=== PATIENT | female | born 1950 | race Caucasian/White ===

== ENCOUNTER → 2016-12-06 | Outpatient (CLI) | payer MEDICARE ==
[~2016-12-06] MED LIST: AMLO5TAB4 PO; BUSP15TA PO; CARV6.25 PO; DILT120C71 PO; DULO30CA2 PO; GABA-585 PO; GADOBUTROL 7.5 MMOL/7.5 ML VIAL IV ONE; IRBE300T PO; META800T PO; MOME13HF IH; MONT10TA9 PO; RIVA20TA2 PO; TRAM50TA PO; VALS320T2 PO
--- NOTE | 2016-12-06 15:53 | KCIC ---
PROCEDURE Screening 3Dmammogram. HISTORY Screening study. COMPARISON Comparison is made with the prior dated 2012 through 2016 FINDINGS 3D tomographic mammography images were obtained in the CC and MLO projections and reviewed on a [employer] workstation. Heterogeneous dense breast parenchyma is seen bilaterally. No asymmetric breast masses or spiculated lesions or clustering of microcalcification are seen to indicate malignancy radiographically. IMPRESSION There are no radiographic indicators for malignancy.Recommend routine screening mammography in one year. BI-RADS CATEGORY 1: Negative mammogram The patient will be entered into the reminder system with a target date of December 07, 2017. This study was interpreted with the benefit of Computerized Aided Detection (CAD). Mammography is not 100% sensitive in detecting breast cancer. Therefore, a self breast exam and a clinical breast exam are very important. A negative mammogram does not negate a clinically suspicious finding and should not result in a delay in biopsying a clinically suspicious abnormality. Based on current legislation, we are required to report to you the density of your breast tissue. Although breast density does not affect your risk for developing breast cancer, denser breast tissue may decrease the ability to detect breast cancer on a standard mammogram. Therefore, patients with denser breast tissue may benefit from a 3D screening mammogram. Categories are as follows: Category A - breast tissue is replaced with fatty tissue and not dense; Category B - scattered fibroglandular breast tissue that is mildly dense; Category C - heterogeneous breast tissue; Category D - very dense breast tissue. Dense breast categories C and D (i.e. denser breast tissue) and sometimes categories A and B may benefit from a 3D mammogram. Your breast tissue category is a C. Electronically signed by: Jaime Wilder MD (December 06, 2016 15:52:50)
--- NOTE | 2016-12-07 16:18 | KCIC ---
PROCEDURE MRI study of the abdomen with and without contrast HISTORY Further evaluations of solid mass lesion of the left kidney seen on outside renal sonogram performed at [facility] dated November 24, 2016. TECHNIQUE Pre and post contrast enhanced MRI sequences of the abdomen were performed focusing on the kidneys. A total of 7 cc of Gadavist was given intravenously. COMPARISON No previous imaging available. Outside report of renal sonogram performed at [facility] on November 24, 2016 stated there is a solid mass in the left kidney measuring 2.3 centimeters. FINDINGS Both kidneys are functioning and no hydronephrosis is seen on either side. Bilateral renal cysts are seen. The largest is seen on the left side anteriorly measuring 23 millimeters. There is a heterogeneous enhancing solid exophytic nodule of the lateral mid to upper aspect of the left kidney measuring 23 millimeters. This is consistent with a renal neoplasm. No macroscopic fat is seen within it to indicate an angiomyelolipoma. There is a nonenhancing hemorrhagic or proteinaceous 6 millimeter cyst of the lower pole of the right kidney. Normal enhancement of both main renal veins is seen. No adrenal mass is seen. The pancreas is normal. The spleen is not enlarged. The liver is not completely visualized in this study. There is a small nonenhancing subcentimeter cyst of the right lobe of the liver adjacent to the gallbladder fossa. The gallbladder is normal. No extrahepatic biliary ductal dilatation is seen. No focal aneurysmal dilatation of the abdominal aorta is seen. No enlarged abdominal lymphadenopathy is seen. IMPRESSION 23 millimeter exophytic solid renal neoplasm of the lateral mid to upper aspect of the left kidney. Electronically signed by: Jaime Wilder MD (December 07, 2016 16:16:55)
== END | disposition home or self-care (01) ==
LOC: KCIC MRI 08:09
PROVIDERS: ATTEND Internal Medicine Cardiovascular Disease
DX: N28.89 Other specified disorders of kidney and ureter (principal); J45.909 Unspecified asthma, uncomplicated; J44.9 Chronic obstructive pulmonary disease, unspecified; I10 Essential (primary) hypertension
CPT/HCPCS: 74183; A9585

== ENCOUNTER → 2017-10-24 | Outpatient (CLI) | payer MEDICARE | END | disposition home or self-care (01) | LOC: KCIC MRI 09:10 | DX: M17.11 Unilateral primary osteoarthritis, right knee (principal); M94.261 Chondromalacia, right knee; M25.461 Effusion, right knee | CPT/HCPCS: 73721 ==

== ENCOUNTER → 2018-01-22 | Outpatient (CLI) | payer MEDICARE | END | disposition home or self-care (01) | LOC: KCIC MRI 09:24 | DX: M48.02 Spinal stenosis, cervical region (principal); M25.78 Osteophyte, vertebrae; M12.88 Other specific arthropathies, not elsewhere classified, other specified site | CPT/HCPCS: 72141 ==

== ENCOUNTER → 2018-01-31 | Outpatient (CLI) | payer MEDICARE ==
[2018-01-31 10:16] LABS: ISTAT CREATININE 0.9 mg/dL (0.6-1.1)
[2018-01-31] MEDS: IOHEXOL 300 MG/ML 100ML VIAL. IV (10:32)
[2018-01-31] MEDS: IOHEXOL 240 MG/ML 50ML VIAL. PO (10:32)
== END | disposition home or self-care (01) ==
LOC: KCIC CT 09:00
DX: C64.2 Malignant neoplasm of left kidney, except renal pelvis (principal); K76.0 Fatty (change of) liver, not elsewhere classified; I70.0 Atherosclerosis of aorta; N32.89 Other specified disorders of bladder; I10 Essential (primary) hypertension; J45.909 Unspecified asthma, uncomplicated
CPT/HCPCS: 72193; 74170; 82565; Q9966; Q9967

== ENCOUNTER → 2018-03-04 | Outpatient (CLI) | payer MEDICARE | END | disposition home or self-care (01) | LOC: US 14:33 | DX: M79.605 Pain in left leg (principal); M79.604 Pain in right leg; R22.43 Localized swelling, mass and lump, lower limb, bilateral; J44.9 Chronic obstructive pulmonary disease, unspecified; Z96.651 Presence of right artificial knee joint | CPT/HCPCS: 93970 ==

== ENCOUNTER → 2018-04-26 | Outpatient (CLI) | payer MEDICARE ==
[~2018-04-26] MED LIST changes: -GADOBUTROL 7.5 MMOL/7.5 ML VIAL IV ONE
--- NOTE | 2018-04-26 13:05 | KCIC ---
MRI of the lumbar spine without contrast 04/26/2018 CLINICAL HISTORY: Low back pain which radiates down the right leg. TECHNIQUE: Unenhanced T1-weighted and T2-weighted sagittal and axial and inversion recovery sagittal images of the lumbar spine were obtained. FINDINGS: Minimal S-shaped curvature of the thoracolumbar spine is seen. Degenerative signal changes and loss of height are seen involving the L2-3, L3-4 and L5-S1 discs. Degenerative signal changes are seen within the marrow surrounding these discs. The conus medullaris is normal morphology, position, and signal characteristics. A 5 mm rounded high signal intensity lesion is seen involving the midpole of the right kidney on the T2-weighted images. This likely represents a cyst. At the L1-2 disc space there is a minimal generalized disc bulge. Degenerative changes are seen involving the facet joints bilaterally. These findings do not result in significant central spinal canal or neural foraminal stenosis. At the L2-3 disc space there is a mild to moderate generalized disc bulge. Degenerative changes are seen involving the facet joints bilaterally. There is mild ligamentum flavum hypertrophy. These findings do not result in significant central spinal canal stenosis. No neural foraminal stenosis is seen. At the L3-4 disc space there is a mild to moderate generalized disc bulge. This is eccentric to the left. Degenerative changes are seen involving the facet joints bilaterally. There is mild ligamentum flavum hypertrophy. These findings when combined do not result in significant central spinal canal stenosis. Mild left neural foraminal stenosis is seen. The right neural foramen is patent. At the L4-5 disc space there is a mild generalized disc bulge. Degenerative changes are seen involving the facet joints bilaterally. There is mild ligamentum flavum hypertrophy. These findings do not result in significant central spinal canal or neural foraminal stenosis. At the L5-S1 disc space there is a mild generalized disc bulge. Degenerative changes are seen involving the facet joints bilaterally. These findings do not result in significant central spinal canal or neural foraminal stenosis. IMPRESSION: The changes of degenerative disc disease are seen throughout the lumbar spine. These findings do not result in significant central spinal canal stenosis at any level. Mild left neural foraminal stenosis is seen at L3-4. Electronically signed by: Lam Holman MD (04/26/2018 1:01 PM) [id number]
== END | disposition home or self-care (01) ==
LOC: KCIC MRI 11:16
PROVIDERS: ATTEND Orthopaedic Surgery Sports Medicine
DX: M51.36 Other intervertebral disc degeneration, lumbar region (principal); M48.061 Spinal stenosis, lumbar region without neurogenic claudication; I10 Essential (primary) hypertension; J44.9 Chronic obstructive pulmonary disease, unspecified; G43.909 Migraine, unspecified, not intractable, without status migrainosus; Z96.651 Presence of right artificial knee joint; Z86.718 Personal history of other venous thrombosis and embolism; Z85.528 Personal history of other malignant neoplasm of kidney
CPT/HCPCS: 72148

== ENCOUNTER → 2020-03-19 | Outpatient (CLI) | payer MEDICARE ==
[~2020-03-19] MED LIST changes: +IOHEXOL 240 MG/ML 50ML VIAL. PO ONE; +IOHEXOL 300 MG/ML 100ML VIAL. IV ONE; +MONT10TA49 PO; -MONT10TA9 PO
--- NOTE | 2020-03-19 14:18 | KCIC ---
EXAM: CHEST 2 VIEWS. HISTORY: Renal cell carcinoma. COMPARISON: None. FINDINGS: Frontal and lateral views of the chest are obtained. Linear opacities in the left greater than right bases most likely indicate atelectasis or scarring. There are no suspicious nodules by radiographs. There is no pneumothorax or pleural effusion. The heart is not enlarged. There are atherosclerotic calcifications of the aorta. There is a mild thoracic dextroscoliosis. IMPRESSION: 1. No evidence of metastatic disease in the chest. CT is more sensitive if there is persistent concern. Electronically signed by: Temitope Medley MD (03/19/2020 2:16 PM) [id number]
--- NOTE | 2020-03-19 15:18 | KCIC ---
EXAM: CT ABDOMEN/PELVIS WITH AND WITHOUT CONTRAST. HISTORY: Left renal cancer status post partial nephrectomy. TECHNIQUE: Computed tomography of the abdomen and pelvis was performed before and after the intravenous administration of iodinated contrast. One or more of the following individualized dose reduction techniques were utilized for this examination: 1. Automated exposure control. 2. Adjustment of the mA and/or kV according to patient size. 3. Use of iterative reconstruction technique. COMPARISON: 01/31/2018, 12/06/2016. FINDINGS: Lung windows through the visualized portions of the bases reveal a 4 mm nodule in the left costophrenic angle, stable since 2018 and likely benign. Subpleural interstitial opacities are consistent with atelectasis or mild interstitial lung disease. Bone windows reveal no suspicious lesions. Partial nephrectomy changes are noted laterally along the left renal interpolar region. There is no evidence of recurrence at this site. Multiple dense nonenhancing nodules in both kidneys are consistent with proteinaceous/hemorrhagic cysts. Multiple subcentimeter typical cysts are seen elsewhere. There are no suspicious lesions bilaterally. There is a 5 mm cyst in hepatic segment 2. Another in segment 5 measures 11 mm. The pancreas, adrenal glands, gallbladder and spleen are unremarkable. There are no pathologically enlarged lymph nodes. The uterus is surgically absent. There is no small bowel obstruction. There is no evidence of appendicitis. IMPRESSION: 1. No evidence of recurrence status post left partial nephrectomy. 2. Multiple bilateral renal masses are consistent with simple and hemorrhagic cyst. No suspicious renal lesions. 3. Correlate for mild interstitial lung disease in the bases. Electronically signed by: Temitope Medley MD (03/19/2020 3:15 PM) [id number]
== END | disposition home or self-care (01) ==
LOC: KCIC CT 09:06
PROVIDERS: ATTEND Urology
DX: C64.2 Malignant neoplasm of left kidney, except renal pelvis (principal); N28.1 Cyst of kidney, acquired; I70.0 Atherosclerosis of aorta; K76.89 Other specified diseases of liver; J84.9 Interstitial pulmonary disease, unspecified; R91.1 Solitary pulmonary nodule
CPT/HCPCS: 71046; 74178; 82565; Q9966; Q9967

== ENCOUNTER → 2020-09-27 | Outpatient (CLI) | payer MEDICARE, MEDICAID ==
[~2020-09-27] MED LIST changes: -IOHEXOL 240 MG/ML 50ML VIAL. PO ONE; -IOHEXOL 300 MG/ML 100ML VIAL. IV ONE
--- NOTE | 2020-09-27 14:17 | KCIC ---
EXAMINATION: MRI RIGHT HIP WITHOUT IV CONTRAST CLINICAL HISTORY: Right hip pain since fall in June 2020 TECHNIQUE: Multiplanar multisequential images obtained through the hip without intravenous contrast. COMPARISON: None FINDINGS: Right Hip: Subchondral marrow reactive/cystic changes in the posterior superior humeral head, compati ble with overlying full-thickness chondral fissuring/loss. Degenerative tearing in the anterior super ior acetabular labrum. No acute fracture. No avascular necrosis. Small joint effusion. No synovitis. Left Hip: No acute fracture. No avascular necrosis. Small joint effusion. Large field of view images limits evaluation of labrum and cartilage. Sacroiliac Joints: Within normal limits. Pubic Symphysis: Within normal limits. Tendons: Right gluteal insertional tendinosis, moderate to marked in the gluteus medius and mild in t he gluteus minimus tendons. Tendons otherwise within normal limits including the right iliopsoas, ham string, gluteus nilton, and rectus femoris tendons. Muscles: Within normal limits. Bones/Marrow: No acute fracture or suspicious marrow replacing process. Partially visualized lumbar d egenerative changes. Other: Mild thickening and fluid in the right trochanteric bursa which can be seen with bursitis in t he appropriate clinical setting. IMPRESSION: Mild degenerative changes right hip. Right gluteal insertional tendinosis, moderate to marked in the gluteus medius tendon. Electronically signed by: Fady Perez DO (09/27/2020 2:14 PM) [id number]
== END ==
LOC: KCIC MRI 12:14
PROVIDERS: ATTEND Internal Medicine Hematology & Oncology
DX: M16.11 Unilateral primary osteoarthritis, right hip (principal)
CPT/HCPCS: 73721

== ENCOUNTER → 2021-03-10 | Outpatient (CLI) | payer MEDICARE, MEDICAID ==
--- NOTE | 2021-03-10 16:54 | KCIC ---
EXAM: CHEST 2 VIEWS. HISTORY: Renal cell carcinoma. COMPARISON: 03/19/2020. FINDINGS: Frontal and lateral views of the chest are obtained. Linear opacities in left base are chronic and likely reflects scarring. There are no suspicious pulmo nary nodules by radiographs. There is no pneumothorax or pleural effusion. The heart is not enlarged. A 1.2 cm calcification projecting anteriorly in the abdomen on the lateral projection may be a gallst one but is indeterminate. There are atherosclerotic calcifications of the aorta. There is mild S-shap ed thoracolumbar scoliosis. IMPRESSION: 1. No evidence of metastatic disease by radiographs. CT is more sensitive if there is persistent conc charbel. 2. Correlate for cholelithiasis. Electronically signed by: Temitope Medley MD (03/10/2021 4:52 PM) [id number]
--- NOTE | 2021-03-10 16:58 | KCIC ---
EXAM: RENAL/RETROPERITONAL ULTRASOUND. HISTORY: Renal cell carcinoma status post left partial nephrectomy. COMPARISON: 03/19/2020. FINDINGS: Ultrasound of the kidneys, bladder and retroperitoneum was performed. The right kidney measures 10.5 cm. Cortical thickness and echogenicity are preserved. There is no hyd ronephrosis. A 10 x 9 mm circumscribed nodule in the right interpolar region contains some internal e choes. A 17 x 15 mm cyst at the lower pole appears simple. There is no internal perfusion at either l esion. The left kidney measures 9.8 cm. Cortical thickness and echogenicity are preserved. There is no hydro nephrosis. A cyst in the left renal upper pole appears to contain a thin septation and measures 16 x 15 mm. Another at the lower pole appears more simple and measures 11 x 10 mm. Images of the bladder reveal no gross abnormality. The abdominal aorta and inferior vena cava are montserrat ssly patent and normal in caliber. IMPRESSION: 1. Bilateral renal masses most likely reflect simple or complicated cysts. Some smaller cysts noted o n prior CT are not detected currently. No solid or perfusion lesions are identified. Electronically signed by: Temitope Medley MD (03/10/2021 4:56 PM) [id number]
== END ==
LOC: KCIC US 15:13
PROVIDERS: ATTEND Urology
DX: C64.2 Malignant neoplasm of left kidney, except renal pelvis (principal); N28.1 Cyst of kidney, acquired; N28.89 Other specified disorders of kidney and ureter; M41.85 Other forms of scoliosis, thoracolumbar region; I70.0 Atherosclerosis of aorta; Z90.5 Acquired absence of kidney
CPT/HCPCS: 71046; 76770